=== PATIENT | female | born 1960 | race Caucasian/White ===

== ENCOUNTER → 2019-03-21 18:36 | Outpatient (CLI) | payer OTHER, SELFPAY ==
[2019-03-21 18:54] LABS: Basophils # 0.1 K/mm3 (0-0.2); Basophils % 0.6 % (0.1-2.0); Eosinophils # 0.3 K/mm3 (0.0-0.4); Eosinophils % 3.9 % (0.1-12.0); Hemoglobin 14.2 g/dL (12.2-16.2); Lymphocytes # 3.3 K/mm3 (0.7-4.5); Lymphocytes % 44.9 % (10-50); Mean Corpuscular HGB Conc 33.2 g/dL (31.8-35.4); Mean Corpuscular Hemoglobin 33.9 pg (27.0-31.2); Mean Corpuscular Volume 102.3 fl (81-99); Mean Platelet Volume 9.1 fl (7.4-10.4); Monocytes # 0.3 K/mm3 (0.1-1.0); Monocytes % 4.5 % (1.7-9.3); Neutrophils # 3.3 K/mm3 (1.8-7.8); Neutrophils % 46.1 % (37.0-80.0); Platelet Count 463 K/mm3 (142-424); Red Cell Distribution Width 12.6 % (11.5-17.5); White Blood Count 7.3 K/mm3 (4.8-10.8)
[2019-03-21 19:13] LABS: Alanine Aminotransferase 16 U/L (12-78); Albumin Level 4.1 gm/dL (3.4-5.0); Albumin/Globulin Ratio 1.4 (1.1-1.8); Alkaline Phosphatase 81 U/L (46-116); Anion Gap 14.5 mEq/L (5-15); Aspartate Amino Transferase 9 U/L (15-37); Bilirubin,Total 0.3 mg/dL (0.2-1.0); Blood Urea Nitrogen 10 mg/dL (7-18); Carbon Dioxide 28 mmol/L (21.0-32.0); Chloride 103 mmol/L (98-107); Cholesterol 249 mg/dL (140-200); Creatinine,Serum 0.81 mg/dL (0.55-1.02); Estimated Glomerular Filt Rate 73 ml/min (>60); GFR (African American) 89 ML/MIN (>60); Globulin 2.9 gm/dl (1.3-3.2); Glucose 88 mg/dL (74-106); HDL Cholesterol 62 mg/dL (29-89); LDL Cholesterol 165 mg/dL (0-130); Potassium 4.5 mmoL/L (3.5-5.1); Sodium 141 mmol/L (136-145); T4 (Thyroxine) 7.9 ug/dl (4.7-13.3); Thyroid Stimulating Hormone 1.46 uIU/ml (0.358-3.740); Triglycerides 110 mg/dL (30-200); VLDL Cholesterol 22 mg/dL (0-40)
[2019-03-21 19:22] LABS: Calcium 8.9 mg/dL (8.5-10.1)
[2019-03-23 11:46] LABS: Vitamin D 25 Hydroxy 28.5 ng/mL (30.0-100.0)
== END ==
PROVIDERS: Visit Provider Nurse Practitioner Family
DX: Z01.89 Encounter for other specified special examinations (principal); J44.9 Chronic obstructive pulmonary disease, unspecified; R06.09 Other forms of dyspnea; E55.9 Vitamin D deficiency, unspecified; Z79.899 Other long term (current) drug therapy
CPT/HCPCS: 80053; 80061; 82652; 84436; 84443; 85025

== ENCOUNTER → 2019-03-27 08:26 | Outpatient (CLI) | payer OTHER, SELFPAY ==
--- NOTE | 2019-03-27 08:31 | XR_ITS ---
PROCEDURE: XR CHEST AP CLINICAL HISTORY: COPD COMPARISON: No exams were available for comparison FINDINGS: The cardiomediastinal silhouette and pulmonary vascularity are within normal limits. Lungs are moderately hyperaerated and hyperlucent especially in the upper lobes with secondary crowding of the pulmonary vessels in the lower lobes. There is flattening of the hemidiaphragms. There are linear strands of increased density in both lung bases. In the right middle lobe or right lower lobe there is a 5 millimeter benign calcified granuloma. There is no pleural effusion or pneumothorax. No acute bony abnormalities. IMPRESSION: Severe COPD as discussed above. Bibasilar linear atelectasis or scarring. Dictated by: Lópze Tinoco 03/27/2019 18:59 Electronically signed by López Tinoco in [facility] 03/27/2019 18:59
== END ==
PROVIDERS: PCP Nurse Practitioner Family; Visit Provider Nurse Practitioner Family
DX: J44.9 Chronic obstructive pulmonary disease, unspecified (principal)
CPT/HCPCS: 71045

== ENCOUNTER → 2019-04-21 14:14 | Outpatient (CLI) | payer MEDICAID, SELFPAY ==
--- NOTE | 2019-04-21 14:14 | CT_ITS ---
PROCEDURE: CT CHEST WO CON CLINICAL INDICATION: nodules f/u Follow-up pulmonary nodule, COPD, tobacco use, smoker COMPARISON: CT Lung Ca Screen 1st Exam from 08/23/2018 CT Lung Ca Screen 1st Exam from 08/23/2018 TECHNIQUE: Axial images obtained with sagittal and coronal reformats. All CT scans at the facility use one or more dose reduction, viz: automated exposure control, ma/kV adjustment per patient size (including targeted exams where dose is matched to indication, i.e. head), or iterative reconstruction technique. FINDINGS: There are some scattered small mediastinal lymph nodes in the precarinal region. There are few calcified hilar lymph nodes noted. Coronary artery calcifications are present. Normal heart size. The there is centrilobular emphysema with bullous changes in the lung apices right more extensive than left with associated scattered areas of scarring bilaterally. There is a calcified granuloma in the right middle lobe. There are mild atelectatic changes in the lung bases. There is a 4 mm nodule within the left upper lobe and is not significantly changed. No central obstructing lesions are evident. There is scattered bilateral parenchymal opacities which is consistent with areas of scarring. There is an area of nodularity in the right middle lobe at approximately 6 mm. This is possibly due to an overlying vessel. Stability may be confirmed with follow-up. There is chronic wedging involving T12 and L2 IMPRESSION: 1. COPD with centrilobular bullous emphysematous changes and scattered areas of scarring. 2. 6 mm nodular opacity right middle lobe probably benign. Recommend six-month follow-up. 3. Coronary artery calcifications Dictated by: Nomi Warner MD 05/01/2019 07:10 Electronically signed by Nomi Warner MD in [facility] 05/01/2019 07:10
== END ==
PROVIDERS: PCP Nurse Practitioner Family; Visit Provider Internal Medicine Sleep Medicine
DX: J44.9 Chronic obstructive pulmonary disease, unspecified (principal)
CPT/HCPCS: 71250